=== PATIENT | male | born 1960 | race Caucasian/White ===

== ENCOUNTER 2021-02-18 11:24 | Outpatient (CLI) | payer SELFPAY ==
--- NOTE | 2021-02-18 11:33 | XR_ITS ---
WS: [id number] Exam: XR lumbar spine 2-3V* [id number] Date/Time of Exam: 02/18/2021 11:37 AM Reason For Exam: CHRONIC LOW BACK PAIN No acute fracture or dislocation. Mild spondylosis. Posterior elements are intact. Degenerative thinn ing of the L1-2 and L2-3 discs. XR/XR lumbar spine 2-3V* [id number] IMPRESSION: 1. No fracture or malalignment. 2. Mild degenerative changes.
== END 2021-02-18 11:25 | disposition home or self-care (01) ==
LOC: RAD 11:31
PROVIDERS: Visit Provider Family Medicine
DX: M54.50 Low back pain, unspecified (principal); G89.29 Other chronic pain
CPT/HCPCS: 72100

== ENCOUNTER 2022-05-29 09:47 | Outpatient (CLI) | payer MEDICAID, SELFPAY ==
--- NOTE | 2022-05-29 10:08 | XRR_ITS ---
PROCEDURE INFORMATION: Exam: XR Chest Exam date and time: 05/29/2022 10:10 AM Age: 62 years old Clinical indication: Shortness of breath; Additional info: Chronic shortness of breath TECHNIQUE: Imaging protocol: Radiologic exam of the chest. Views: 2 views. COMPARISON: No relevant prior studies available. FINDINGS: Lungs: Unremarkable. No consolidation. Pleural spaces: Unremarkable. No pleural effusion. No pneumothorax. Heart/Mediastinum: Unremarkable. No cardiomegaly. Bones/joints: Mild-moderate degenerative changes midthoracic spine. No acute bony abnormalities. XR/XR chest 2V* [id number] IMPRESSION: Negative chest
== END 2022-05-29 09:48 | disposition home or self-care (01) ==
PROVIDERS: Visit Provider Family Medicine
DX: R06.02 Shortness of breath (principal)
CPT/HCPCS: 71046

== ENCOUNTER 2022-05-31 09:51 | Outpatient (CLI) | payer MEDICAID, SELFPAY ==
--- NOTE | 2022-05-31 10:07 | XR_ITS ---
WS: [id number] XR thoracic spine 3V* [id number] REASON FOR EXAM: CHRONIC BACK PAIN FINDINGS: No significant scoliosis or kyphosis. There are mild wedge-shaped and biconcave compression deformities in the mid and lower thoracic spine . Chronicity unknown however most likely remote. Mild to moderate disc space narrowing with mild anterior osteophytosis in the mid and lower thoracic spine. XR/XR thoracic spine 3V* [id number] IMPRESSION: Degenerative spondylosis in the mid and lower thoracic spine as above.
--- NOTE | 2022-05-31 10:07 | XR_ITS ---
WS: [email or web address] XR lumbar spine 2-3V* [id number] REASON FOR EXAM: CHRONIC BACK PAIN FINDINGS: Mild rotatory scoliosis convex left. Mild chronic appearing compression deformities of L1 and L2. No focal vertebral body lesion. Vertebral body osteophytosis L1-L5 most significant at L1-L2. Moderate narrowing of the disc spaces at L1-L2, L2-L3, and L5-S1. Moderate degenerative change in the facet joints L3-S1. No spondylolysis identified. 7-8 mm of anterolisthesis of L3 in relation to L2. 8 to 9 mm of anterolisthesis of L4 in relation to L3. XR/XR lumbar spine 2-3V* [id number] IMPRESSION: Degenerative spondylosis of the lumbar spine as above.
== END 2022-05-31 09:52 | disposition home or self-care (01) ==
LOC: RAD 09:56
PROVIDERS: PCP Family Medicine; Visit Provider Family Medicine
DX: G89.29 Other chronic pain (principal); M47.814 Spondylosis without myelopathy or radiculopathy, thoracic region; M47.816 Spondylosis without myelopathy or radiculopathy, lumbar region
CPT/HCPCS: 72072; 72100

== ENCOUNTER 2022-09-15 08:38 | Outpatient (CLI) | payer MEDICAID, SELFPAY ==
--- NOTE | 2022-09-15 | MR_ITS ---
WS: [id number] MRI BRAIN WITHOUT CONTRAST HISTORY: HEADACHES COMPARISON: None available. TECHNIQUE: Diffusion imaging, multiplanar T1, T2 and FLAIR imaging obtained. No evidence for acute infarct or hemorrhage. Castle-white matter differentiation is normal. Mild cerebr al atrophy. There is mild increased T1 signal in the globus pallidus, bilateral. Increased T2 signal extends into the substantia nigra. No infarct. Ventricles and extra-axial spaces are normal. No inferior displacement of cerebellar tonsils. The sella turcica and pituitary gland are unremarkabl e. Dural venous sinuses and [place] demonstrate no abnormality on this unenhanced studies. Paranasal sinuses: Clear. Mastoid air cells: Normal. Calvarium and scalp: Intact. MR/MR head wo con* [id number] IMPRESSION: 1. No acute infarct or hemorrhage. 2. Mild bilateral increased T1 signal in the globus pallidus and probably also the substantia nigra. There are many causes of increased T1 signal in the glob us pallidus including, hemorrhage, calcium metabolic abnormalities, hypoxic isc hemic encephalopathy and chronic hepatocellular disease. 3. Very mild cerebral atrophy.
== END 2022-09-15 08:39 | disposition home or self-care (01) ==
LOC: RAD 08:41
PROVIDERS: PCP Family Medicine; Visit Provider Family Medicine
DX: R51.9 Headache, unspecified (principal); R42 Dizziness and giddiness; R26.89 Other abnormalities of gait and mobility; G31.9 Degenerative disease of nervous system, unspecified
CPT/HCPCS: 70551

== ENCOUNTER 2022-12-26 08:49 | Outpatient (CLI) | payer MEDICARE, MEDICAID, SELFPAY ==
--- NOTE | 2022-12-26 09:02 | US_ITS ---
WS: [id number] Complete ABDOMINAL ULTRASOUND HISTORY: ASCITES/ABDOMINAL HERNIA COMPARISON: None available. Liver: 16.8 cm in length. Coarse echotexture throughout the liver. No mass identified. No bile duct d ilatation. Portal Vein: Normal hepatopetal flow with monophasic waveform. Gallbladder: Normally distended gallbladder with no stones or wall thickening. CBD: 0.3 cm Pancreas: Poorly visualized due to body habitus. Right kidney: 12.5 cm x 4.8 x 5.1 cm. Cortex:1.3 cm. Normal size kidney. Cortical cyst mid kidney measures 1.4 x 1.7 x 1.8 cm. No renal obstruction. Left kidney: 13.1 cm x 5.4 cm x 5.2 cm. Cortex: 1.2 cm. Normal size and echogenicity. No hydronephrosis or mass. Spleen: 14.3 cm in length. Moderately enlarged spleen. Aorta and IVC: Unremarkable abdominal aorta and IVC. As directed by the patient in the LEFT upper quadrant no abnormality is identified. Impression: 1. Moderately enlarged spleen. 2. No ascites. 3. RIGHT renal cyst. 4. Mild hepatic steatosis. 5. Pancreas not visualized.
== END 2022-12-26 08:50 | disposition home or self-care (01) ==
PROVIDERS: PCP Family Medicine; Visit Provider Family Medicine
DX: R18.8 Other ascites (principal); K46.9 Unspecified abdominal hernia without obstruction or gangrene; R16.1 Splenomegaly, not elsewhere classified; N28.1 Cyst of kidney, acquired; K76.0 Fatty (change of) liver, not elsewhere classified
CPT/HCPCS: 76700

== ENCOUNTER → 2023-01-23 08:02 | Outpatient (BNVA) | payer MEDICARE, MEDICAID, SELFPAY | PROVIDERS: PCP Family Medicine; Referring Provider Family Medicine; Visit Provider Psychiatry & Neurology Neurology | DX: R93.0 Abnormal findings on diagnostic imaging of skull and head, not elsewhere classified (principal); E07.9 Disorder of thyroid, unspecified; E55.9 Vitamin D deficiency, unspecified; R41.0 Disorientation, unspecified | CPT/HCPCS: 36415; 82306; 82390; 82607; 82746; 83735; 83921; 84155; 84165; 84439; 84443; 84481; 85651; 86140; 86160; 86162; 86235; 86255; 86334; 86376; 86431; 86617; 86780; 99203 ==

== ENCOUNTER 2023-01-25 09:13 | Outpatient (CLI) | payer MEDICARE, MEDICAID, SELFPAY ==
[2023-01-30 10:05] LABS: Copper Level 119 mcg/dL (70-175)
== END 2023-01-25 09:14 | disposition home or self-care (01) ==
LOC: LAB 09:16
PROVIDERS: PCP Family Medicine; Visit Provider Psychiatry & Neurology Neurology
DX: R93.0 Abnormal findings on diagnostic imaging of skull and head, not elsewhere classified (principal)
CPT/HCPCS: 36415; 82525

== ENCOUNTER 2023-01-30 06:48 | Outpatient (CLI) | payer MEDICARE, MEDICAID, SELFPAY ==
--- NOTE | 2023-01-30 06:45 | USCV_ITS ---
Ariel Castro Age: 62 Gender: M : 1960 Exam Date: 01/30/2023 07:03 Ordering Phys: Bryan Barboza MD Technologist: LEOPOLDO Exam Location: [facility] [place] Indication: DIZZINESS AND CONFUSED. Risk Factors: Unknown Previous Vascular Surgery: None Right Brachial BP: / Left Brachial BP: / Right Left Velocity (cm/s) Spectral Plaque Velocity (cm/s) Spectral Plaque Syst/Diast Broadening Syst/Diast Broadening 89.10/ 28.10 Prox CCA 77.80 / 24.00 87.20/ 31.00 Mid CCA 80.30 / 23.10 55.80/ 19.80 Hetro Distal CCA 70.90 / 21.40 Hetro 45.30/ 21.10 Prox ICA 56.10 / 20.30 68.20/ 30.40 Mid ICA 55.00 / 23.50 83.50/ 46.90 Distal ICA 64.60 / 33.10 71.30 ECA 88.90 0.96 ICA/CCA 0.80 Antegrade Vertebral Antegrade 29.50/ 11.80 cm/s 31.00/ 11.20 cm/s Tri Subclavian Tri 66.90 118.0 0 FINDINGS Comparison: none available. No significant elevation of systolic or diastolic velocities. Mild carotid atherosclerosis. Antegrade vertebral arteries. CONCLUSIONS Bilateral ICA stenosis less than 50%. Dr. Susannah Wang DO (Electronically Signed) Final Date: 30 January 2023 07:38 S
== END 2023-01-30 06:49 | disposition home or self-care (01) ==
LOC: RAD 06:49
PROVIDERS: PCP Family Medicine; Visit Provider Psychiatry & Neurology Neurology
DX: R42 Dizziness and giddiness (principal); R41.0 Disorientation, unspecified; I65.23 Occlusion and stenosis of bilateral carotid arteries
CPT/HCPCS: 93880

== ENCOUNTER → 2023-02-22 09:59 | Outpatient (BNVA) | payer MEDICARE, MEDICAID, SELFPAY | PROVIDERS: PCP Family Medicine; Visit Provider Psychiatry & Neurology Neurology | DX: R42 Dizziness and giddiness (principal); R26.89 Other abnormalities of gait and mobility; R27.9 Unspecified lack of coordination; R41.0 Disorientation, unspecified; R41.3 Other amnesia; R56.9 Unspecified convulsions; G93.40 Encephalopathy, unspecified | CPT/HCPCS: 95812; 95816; 95819 ==

== ENCOUNTER 2023-09-10 08:47 | Outpatient (CLI) | payer MEDICARE, MEDICAID, SELFPAY ==
--- NOTE | 2023-09-10 08:53 | US_ITS ---
WS: [email or web address] Complete ABDOMINAL ULTRASOUND HISTORY: ABDOMINAL PAIN/KIDNEY STONES COMPARISON: None available. Liver: 15.5 cm in length. Normal size liver. Surface of the liver is irregular. Consistent with cirrh osis. No mass or bile duct dilatation. Portal Vein: Normal hepatopetal flow with monophasic waveform. Gallbladder: Normally distended gallbladder with no stones or wall thickening. CBD: 0.5 cm Pancreas: Normal size and echogenicity. Right kidney: 12.2 cm x 6.4 x 4.4 cm. Cortex:0.9 cm. Normal size and echogenicity. Central pelvic cyst 1.4 x 2.0 x 1.7 cm. No solid mass. Left kidney: 11.9 cm x 5.5 cm x 4.5 cm. Cortex: 0.9 cm. Normal size and echogenicity. No hydronephrosis or mass. Spleen: 12.9 cm. Top low normal size spleen. Aorta and IVC: Unremarkable abdominal aorta and IVC. US/US abdomen complete* [id number] Impression: 1. Normal size liver with cirrhotic appearance. 2. Negative gallbladder. Gallbladder is similar to the prior examination. No s tones. 3. Spleen is top normal size. Slightly smaller in size as compared to the prio r study. 4.
== END 2023-09-10 08:48 | disposition home or self-care (01) ==
LOC: RAD 08:48
PROVIDERS: PCP Family Medicine; Visit Provider Family Medicine
DX: N20.0 Calculus of kidney (principal); R93.2 Abnormal findings on diagnostic imaging of liver and biliary tract
CPT/HCPCS: 76700

== ENCOUNTER 2023-10-11 09:45 | Outpatient (CLI) | payer MEDICARE, MEDICAID, SELFPAY ==
--- NOTE | 2023-10-11 09:53 | CTR_ITS ---
PROCEDURE INFORMATION: Exam: CT Pelvis Without And With Contrast Exam date and time: 10/11/2023 10:40 AM Age: 63 years old Clinical indication: Abnormal findings; Abnormal imaging test; Patient HX: Cirrohosis, pelvic cyst, blood in urine, discomfort while urinating x severeal months; Additional info: Cirrohosis, abnormal imaging/pelvic cyst TECHNIQUE: Imaging protocol: Computed tomography of the pelvis without and with contrast. Radiation optimization: All CT scans at this facility use at least one of these dose optimization techniques: automated exposure control; mA and/or kV adjustment per patient size (includes targeted exams where dose is matched to clinical indication); or iterative reconstruction. Contrast material: OMNI 350; Contrast volume: 100 ml; Contrast route: INTRAVENOUS (IV); COMPARISON: US abdomen complete* [id number] 09/10/2023 9:14 AM RADIATION DOSE METRICS: Total DLP (mGy-cm): 1192.21 FINDINGS: Intestine: Mild colonic diverticulosis. Appendix: Normal appendix. Intraperitoneal space: Unremarkable. No free air. No significant fluid collection. Vasculature: Calcification of the abdominal aorta and/or iliac arteries consistent with atherosclerotic vessel disease. Lymph nodes: Unremarkable. No enlarged lymph nodes. Reproductive: Normal as visualized. Urinary bladder: Small 1.0 x 0.6 x 0.5 cm enhancing lesion in the right posteroinferior urinary bladder wall suggesting possible small transitional cell carcinoma versus other lesion. Axial series 8, image 37, coronal series 12, image 32, sagittal series 13, image 45. Bones/joints: Grade 1 anterior spondylolytic spondylolisthesis of L5 on S1. Soft tissues: Unremarkable. CT/CT pelvis wo/w con [id number] IMPRESSION: Small 1.0 x 0.6 x 0.5 cm enhancing lesion in the right posteroinferior urinary bladder wall suggesting possible small transitional cell carcinoma versus other lesion. Axial series 8, image 37, coronal series 12, image 32, sagittal series 13, image 45.
[2023-10-11 10:35] LABS: Blood Urea Nitrogen 11 mg/dL (8-23); Glomerular Filtration Rate 114.6 mL/min (90-130)
[2023-10-11] MEDS: iohexol 350 mg/mL 500 mL Btl (per mL) IV (10:54)
== END 2023-10-11 09:48 | disposition home or self-care (01) ==
PROVIDERS: Radiology Neuroradiology; PCP Family Medicine; Visit Provider Family Medicine
DX: K74.60 Unspecified cirrhosis of liver (principal); R93.89 Abnormal findings on diagnostic imaging of other specified body structures; N32.9 Bladder disorder, unspecified; I70.0 Atherosclerosis of aorta; M43.16 Spondylolisthesis, lumbar region
CPT/HCPCS: 72194; 82565; 84520; Q9967

== ENCOUNTER 2024-02-01 11:55 | Outpatient (CLI) | payer MEDICARE, MEDICAID, SELFPAY ==
[2024-02-01 12:29] VITALS: BP 169/88; PULSE 86; BMI 33.0
--- NOTE | 2024-02-01 12:33 | ECG_ITS ---
[facility]24[facility]01 Pat Name: Ariel Castro Department: Room: Gender: Male Integrated Marketing Specialist: : 1960 Requested By: Julio César Mendez Order Number: [id number] Ross MD: Jhonathan Cotton M.D. Interpretive Statements EXERCISE STRESS TEST EXERCISE DATA: The patient was exercised by Paulo protocol. Baseline heart rate was 77 beats per minute. Baseline blood pressure was 147/104 millimeters of mercury. Maximal predicted heart rate [id number] beats per minute. Maximum heart rate achieved was 138, which was 86% of the maximum predicted heart rate. Maximum blood pressure was 202/85 millimeters of mercury. Total exercise time was 3 minutes 20 seconds. Maximum METs achieved was 7. The reason for ending the test was Maximal effort achieved. The patient complained of Shortness of breath during the stress test, which then resolved at the end of the test. ELECTROCARDIOGRAM: BASELINE: Showed sinus rhythm, normal axis, no significant ST-T changes at the baseline noted. [] EXERCISE: At the peak exercise level, [] No significant ST-T changes suggestive of ischemia noted. [] RECOVERY: During the recovery period, heart rate dropped appropriately. No significant ST-T changes in the recovery suggestive of ischemia noted. [] CONCLUSION: 1. Exercise capacity is poor 2. Heart rate response was appropriate 3. Blood pressure response was appropriate 4. Symptoms not suggestive of ischemia. 5. Stress test was not suggestive of ischemia. Electronically Signed On 02-01-2024 19:34:02 CDT by Jhonathan Cotton M.D. [email or web address]
== END 2024-02-01 11:56 | disposition home or self-care (01) ==
PROVIDERS: PCP Family Medicine; Visit Provider Family Medicine
DX: R07.9 Chest pain, unspecified (principal)
CPT/HCPCS: 93017

== ENCOUNTER 2024-07-15 10:18 | Outpatient (CLI) | payer OTHER, SELFPAY ==
--- NOTE | 2024-07-15 10:32 | CTR_ITS ---
PROCEDURE INFORMATION: Exam: CT Chest Without Contrast; Diagnostic Exam date and time: 07/15/2024 11:06 AM Age: 64 years old Clinical indication: Condition or disease; Other: Interstitial lung dz; Primary cancer: Bladder TECHNIQUE: Imaging protocol: Diagnostic computed tomography of the chest without contrast. Radiation optimization: All CT scans at this facility use at least one of these dose optimization techniques: automated exposure control; mA and/or kV adjustment per patient size (includes targeted exams where dose is matched to clinical indication); or iterative reconstruction. COMPARISON: CR XR chest 2V* [id number] 01/23/2024 10:52 AM RADIATION DOSE METRICS: Total DLP (mGy-cm): 1897.23 FINDINGS: Lungs: No suspicious pulmonary nodules or masses. Pleural spaces: Unremarkable. No pneumothorax. No pleural effusion. Heart: No coronary artery calcifications. No cardiomegaly. No pericardial effusion. Lymph nodes: There is a right upper paratracheal lymph node measuring up to 10 mm in short axis (series 7, image 14). This is nonspecific and while this may be reactive in nature metastatic disease can not be entirely excluded. Vasculature: Unremarkable. No aortic aneurysm. Spleen: Spleen is enlarged measuring up to 16.5 cm in length. Bones/joints: Unremarkable. No acute fracture. Soft tissues: Unremarkable. CT/CT chest wo con [id number] IMPRESSION: 1. There is a right upper paratracheal lymph node measuring up to 10 mm in short axis (series 7, image 14). This is nonspecific and while this may be reactive in nature metastatic disease can not be entirely excluded. No other enlarged or suspicious lymph nodes in the axilla, mediastinum or hilar stations. 2. No suspicious pulmonary nodules or masses.
== END 2024-07-15 10:19 | disposition home or self-care (01) ==
LOC: RAD 10:25
PROVIDERS: PCP Family Medicine; Visit Provider Family Medicine
DX: J84.9 Interstitial pulmonary disease, unspecified (principal); R59.0 Localized enlarged lymph nodes; R16.1 Splenomegaly, not elsewhere classified
CPT/HCPCS: 71250

== ENCOUNTER 2024-11-17 08:42 | Oncology outpatient (recurring) (ONCR) | payer MEDICARE, SELFPAY | END 2024-11-20 23:59 | disposition home or self-care (01) | PROVIDERS: PCP Family Medicine; Visit Provider Internal Medicine Medical Oncology | DX: D69.6 Thrombocytopenia, unspecified (principal); D49.4 Neoplasm of unspecified behavior of bladder; K74.60 Unspecified cirrhosis of liver; R59.0 Localized enlarged lymph nodes; Z87.891 Personal history of nicotine dependence | CPT/HCPCS: 99205 ==